=== PATIENT | male | born 1985 | race Caucasian/White ===

== ENCOUNTER 2016-12-28 14:17 | Emergency (ER) ==
[2016-12-28 14:38] LABS: MANUAL DIFF NEEDED? NO
[2016-12-28 14:47] LABS: BASO% 0.2 % (0.0-0.8); EOS# 0.01 X1000 (0.0-0.7); EOS% 0.2 % (0.0-10.0); HEMATOCRIT 45.7 % (42.0-52.0); HEMOGLOBIN 15.3 g/dL (14.0-18.0); LYMPH# 0.74 X1000 (1.2-3.4); LYMPH% 16.6 % (20.5-51.1); MCHC 33.5 g/dL (33-37); MCV 95.6 FL (81-99); MONO# 0.59 X1000 (0.11-0.59); MONO% 13.2 % (1.7-9.3); MPV 9.5 FL (7.4-10.4); NEUT% 69.8 % (42.2-75.2); PLT 206 X1000 (130-400); RBC 4.78 XMIL (4.7-6.1)
[2016-12-28 15:01] LABS: AGAP 12; ALBUMIN 4.4 g/dL (3.5-5.0); ALKALINE PHOSPHATASE 70 U/L (32-122); AMYLASE 63 U/L (20-200); BUN 11 mg/dL (8-22); CHLORIDE 96 mmol/L (98-107); COSMO 269; GOT 25 U/L (10-34); GPT 29 U/L (10-44); LIPASE 22 U/L (13-60); POTASSIUM 3.3 mmol/L (3.5-5.1); SODIUM 134 mmol/L (136-145); TCO2 26 mmol/L (25-35); TOTAL BILIRUBIN 0.62 mg/dL (0.20-1.00); TOTAL PROTEIN 7.8 g/dL (6.3-8.3)
[2016-12-28 15:03] LABS: URINE CULTURE NEEDED? NO; URINE MICRO REVIEW NEEDED? NO; URINE SOURCE CLEAN CATCH
[2016-12-28 15:11] LABS: BILIRUBIN URINE NEGATIVE (NEGATIVE); BLOOD URINE MODERATE (NEGATIVE); COLOR YELLOW; GLUCOSE URINE NEGATIVE (NEGATIVE); LEUKOCYTES URINE NEGATIVE (NEGATIVE); NITRITE URINE NEGATIVE (NEGATIVE); PROTEIN URINE TRACE mg/dL (NEGATIVE); SP GRAVITY URINE 1.027; TURBIDITY URINE CLEAR (CLEAR); UROBILINOGEN URINE NORMAL (NORMAL)
[2016-12-28 15:12] LABS: UR EPITHELIAL CELLS <10 /HPF (<10); URINE BACTERIA NEGATIVE /HPF; URINE RBC 20-40 /HPF (<10); URINE WBC <10 /HPF (<10)
--- NOTE | 2016-12-28 16:40 | PROVIDER DOCUMENTATION ---
HPI-Abdominal Pain/GI Problem - General Chief Complaint: Nausea/Vomiting Stated Complaint: N/V Time Seen by Provider: 12/28/16 16:25 Source: patient Allergies/Adverse Reactions: Patient Allergies Allergy/AdvReac Type Severity Reaction Status Date / Time No Known Allergies Allergy Verified 12/28/16 14:29 Home Medications: Home Medication List Medication Instructions Recorded Confirmed Last Taken Type Hydrocodone/Acetaminophen [Lortab 1 each PO PRN PRN 12/28/16 12/28/16 12/27/16 20:00 History 7.5-325 mg Tablet] Metronidazole 500 mg PO BID #20 tablet 12/28/16 Unknown Rx Ondansetron Odt [Zofran 8Mg Odt] 8 mg PO Q8H PRN PRN #20 tablet 12/28/16 Unknown Rx Oseltamivir [Tamiflu] 75 mg PO BID #10 capsule 12/28/16 Unknown Rx Promethazine [Phenergan] 25 mg PO Q6H PRN PRN #20 tablet 12/28/16 Unknown Rx - History of Present Illness-ABD Nature of Presenting Problems: 31 y/o M c/o cough, N/V x 2 days. Pt states that he has noted vomiting x 2 days. Denies any diarrhea, back pain, abd. pain, urinary sxs. States around sick contacts at work with similar sxs. States feverish last night, but did not check his temperature. Denies influenza vaccine. Review of Systems - Adult - REVIEW OF SYSTEMS - ADULT Constitutional: reports: see HPI, fever. denies: chills Eyes: reports: no symptoms reported. denies: blurred vision, double vision Ears, Nose, Mouth & Throat: reports: no symptoms reported. denies: ear pain, nose pain, throat pain Cardiovascular: reports: no symptoms reported. denies: chest pain, palpitations Respiratory: reports: see HPI, cough. denies: dyspnea on exertion, shortness of breath Gastrointestinal: reports: see HPI, nausea, vomiting. denies: abdominal pain, constipation, diarrhea Genitourinary: reports: no symptoms reported. denies: dysuria, frequency, flank pain, hematuria Musculoskeletal: reports: no symptoms reported. denies: joint pain, joint swelling Integumentary: reports: no symptoms reported. denies: nail changes, rash Neurological: reports: no symptoms reported. denies: numbness, paresthesia Psychiatric: reports: no symptoms reported Endocrine: reports: no symptoms reported. denies: cold intolerance, heat intolerance Hematologic/Lymphatic: reports: no symptoms reported. denies: easy bruising, prolonged bleeding Allergic/Immunologic: reports: no symptoms reported All Other Systems: Reviewed and Negative Past History - Adult - PAST MEDICAL HISTORY-ADULT Review of Records: reports: Nursing Assessment Review, Medications Reviewed - SOCIAL HISTORY Smoking: denies Alcohol Use Frequency: 3-4 times a week Physical Exam-General - PHYSICAL EXAM-ADULT Initial Vital Signs Reviewed: Yes - CONSTITUTIONAL General Appearance: alert, mild distress - EYES Eyes: pink conjunctivae - HEAD, EARS, NOSE, MOUTH & THROAT HENMT: normocephalic/atraumatic, moist mucous membranes, pharyngeal erythema. negative: tonsillar exudate - NECK Neck: supple, normal inspection. negative: lymphadenopathy - RESPIRATORY Respiratory: lungs clear, normal breath sounds. negative: crackles, rales, rhonchi, stridor, wheezing - CARDIOVASCULAR Cardiovascular: regular rate, rhythm. negative: bradycardia, tachycardia - GASTROINTESTINAL (ABDOMEN) Abdominal Exam: normal bowel sounds, non tender, soft. negative: distended, guarding, rigid, McBurney's point tenderness, Biggs's sign - MUSCULOSKELETAL Back Exam: no CVA tenderness Extremity: normal gait - SKIN Integumentary: normal color, normal turgor, warm/dry - NEUROLOGIC Neurologic: negative: aphasia - PSYCHIATRIC Psych/Mental Status: normal mood/affect, normal thought content, normal thought process, oriented x 3 Progress - PLAN OF CARE/RESULTS Progress/Plan/Lab Results: Orders Category Date Time Status Saline Loc DIRECTED Care 12/28/16 14:25 Active NPO Diet 12/28/16 14:25 Completed FLAT/UPRIGHT ABD/1 VIEW CHEST [RAD] Stat Exams 12/28/16 16:34 Completed AMYLASE [CHEM] Stat Lab 12/28/16 14:31 Completed CBC WITH ELECTRONIC DIFF [HEME] Stat Lab 12/28/16 14:31 Completed COMPREHENSIVE METABOLIC PANEL [CHEM] Stat Lab 12/28/16 14:31 Completed INFLUENZA SCREEN A/B Stat Lab 12/28/16 16:36 Completed LIPASE [CHEM] Stat Lab 12/28/16 14:31 Completed URINALYSIS W/POSS RFLX CULT [URINALYSIS] Stat Lab 12/28/16 15:02 Completed Ondansetron Odt [Zofran Odt] Med 12/28/16 17:28 Discontinued 8 mg PO NOW ONE Orders Category Date Time Status Saline Loc DIRECTED Care 12/28/16 14:25 Active NPO Diet 12/28/16 14:25 Completed FLAT/UPRIGHT ABD/1 VIEW CHEST [RAD] Stat Exams 12/28/16 16:34 Completed AMYLASE [CHEM] Stat Lab 12/28/16 14:31 Completed CBC WITH ELECTRONIC DIFF [HEME] Stat Lab 12/28/16 14:31 Completed COMPREHENSIVE METABOLIC PANEL [CHEM] Stat Lab 12/28/16 14:31 Completed INFLUENZA SCREEN A/B Stat Lab 12/28/16 16:36 Completed LIPASE [CHEM] Stat Lab 12/28/16 14:31 Completed URINALYSIS W/POSS RFLX CULT [URINALYSIS] Stat Lab 12/28/16 15:02 Completed Ondansetron Odt [Zofran Odt] Med 12/28/16 17:28 Discontinued 8 mg PO NOW ONE Vital Signs Temp Pulse Resp BP Pulse Ox 12/28/16 17:53 98.8 F 58 L 17 130/86 100 12/28/16 14:23 97.8 F 78 16 112/77 100 No Known Allergies Allergy (Verified 12/28/16 14:29) Hydrocodone/Acetaminophen [Lortab 7.5-325 mg Tablet] 1 each PO PRN PRN 12/28/16 Metronidazole 500 mg PO BID #20 tablet 12/28/16 Ondansetron Odt [Zofran 8Mg Odt] 8 mg PO Q8H PRN PRN #20 tablet 12/28/16 Oseltamivir [Tamiflu] 75 mg PO BID #10 capsule 12/28/16 Promethazine [Phenergan] 25 mg PO Q6H PRN PRN #20 tablet 12/28/16 FLU DUE TO UNIDENTIFIED INFLUENZA VIRUS W OTH RESP MANIFEST (12/28/16) NONINFECTIVE GASTROENTERITIS AND COLITIS, UNSPECIFIED (12/28/16) COUGH (12/28/16) NAUSEA WITH VOMITING, UNSPECIFIED (12/28/16) FEVER, UNSPECIFIED (12/28/16) I&O 12/29/16 12/30/16 12/31/16 06:59 06:59 06:59 Output Total 30 Balance -30 Laboratory Tests 12/28/16 12/28/16 12/28/16 14:31 14:31 15:02 WBC 4.46 L RBC 4.78 Hgb 15.3 Hct 45.7 MCV 95.6 MCH 32.0 H MCHC 33.5 RDW Std Deviation 13.5 Plt Count 206 MPV 9.5 Neut % (Auto) 69.8 Lymph % (Auto) 16.6 L [place] % (Auto) 13.2 H Eos % (Auto) 0.2 Baso % (Auto) 0.2 Neut # (Auto) 3.11 Lymph # (Auto) 0.74 L [place] # (Auto) 0.59 Eos # (Auto) 0.01 Baso # (Auto) 0.01 Sodium 134 L Potassium 3.3 L Chloride 96 L Carbon Dioxide 26 Anion Gap 12 BUN 11 Creatinine 0.9 Estimated GFR/1.73 m2 > 60 BUN/Creatinine Ratio 12 Glucose 126 H Calculated Osmolality 269 Calcium 9.0 Total Bilirubin 0.62 AST 25 ALT 29 Alkaline Phosphatase 70 Total Protein 7.8 Albumin 4.4 Globulin 3.4 Albumin/Globulin Ratio 1.3 Amylase 63 Lipase 22 Urine Source CLEAN CATCH Urine Color YELLOW Urine Turbidity CLEAR Urine pH 6.0 Ur Specific [place] 1.027 Urine Protein TRACE A Ur Glucose (Stick) NEGATIVE Ur Ketones (Stick) NEGATIVE Urine Blood MODERATE A Urine Nitrite NEGATIVE Urine Bilirubin NEGATIVE Urobilinogen Dipstick NORMAL Urine Leukocytes NEGATIVE Urine WBC (Auto) <10 Urine RBC (Auto) 20-40 A U Epithel Cells (Auto) <10 Urine Bacteria (Auto) NEGATIVE - XRAY 1 XRAY Study: Chest, Abdomen Impression: See EMR Report (possible mild enterocolitis, per Dr. Ware) Departure - Departure Time of Disposition Order: 17:26 DIAGNOSIS: Influenza A, Enterocolitis Disposition: HOME 01 Certified Medical Emergency: Emergent Condition: Stable Additional Instructions: Take medications as directed. Drink plenty of fluids. Follow up with PCP in 5- 7 days for recheck. Contact precautions advised. Tylenol/motrin for fever/ bodyaches. ED Follow Up Instructions: You have been treated by a care provider in the Emergency Department. These instructions are being provided to you so you can have an understanding of how to care for yourself upon discharge. Upon discharge from the Emergency Department, you are responsible for making arrangements for follow-up care by a physician of your choice. Take all prescribed medications as directed. Return to the Emergency Department immediately for any new or worsening symptoms. You may call the Physician Referral phone number at [phone] to obtain a list of Physicians who are taking new patients. Prescriptions: Metronidazole 500 mg PO BID #20 tablet Promethazine [Phenergan] 25 mg PO Q6H PRN PRN #20 tablet PRN Reason: Nausea Oseltamivir [Tamiflu] 75 mg PO BID #10 capsule Ondansetron Odt [Zofran 8Mg Odt] 8 mg PO Q8H PRN PRN #20 tablet PRN Reason: Nausea Referrals: None,PCP [Primary Care Provider] - Forms: Return to School/Parent Work Instructions: Influenza, Adult, [id number], Viral Gastroenteritis, Easy-to- Read Attestation - Physician/ OLIVERIO Attestation Patient care was provided by Advanced Practice Provider:: Yes Advanced Practice Provider:: Brenda Jacome Advanced Practice Provider documentation review:: The Mid-level provider documentation, treatment plan and medical decision making was reviewed by the physician who agrees with all treatment and medical decision making by the MLP.
[2016-12-28] MEDS ORDERED: ZOFRAN ODT PO ONE (17:28)
--- NOTE | 2016-12-28 17:32 | Diag Imaging Result Document ---
PROCEDURE NAME: FLAT/UPRIGHT ABD/1 VIEW CHEST - 12/28/2016 SUPINE UPRIGHT ABDOMEN AND ONE-VIEW CHEST: FINDINGS: There is gas visible in nondistended to slightly distended colon and rectum. There is gas visible in multiple nondistended small bowel loops. There is no substantial gaseous small bowel distention identified. There is no free air identified. There are calcifications compatible with phleboliths noted in the left true pelvis. Upright chest shows normal heart size. Lungs appear clear. There is no pleural effusion or pneumothorax seen. IMPRESSION: 1. Nonspecific, nonobstructive bowel gas pattern, possibly related to mild enterocolitis. 2. No evidence of acute cardiopulmonary disease.
[2016-12-28 17:58] VITALS: BP 130/86
== END 2016-12-28 17:55 | disposition home or self-care (01) ==
LOC: ED 14:17
DX: J11.1 Influenza due to unidentified influenza virus with other respiratory manifestations (principal); K52.9 Noninfective gastroenteritis and colitis, unspecified; R11.2 Nausea with vomiting, unspecified; R05 Cough; R50.9 Fever, unspecified
CPT/HCPCS: 74022; 80053; 81001; 82150; 83690; 85025; 87804; 99284